=== PATIENT | male | born 1965 | race Two or more races ===

== ENCOUNTER 2019-02-07 20:21 | Emergency (ER) | payer OTHER, BC ==
[2019-02-07] MEDS: AZITHROMYCIN 250 MG TAB PO (23:45)
[2019-02-07] MEDS: CEFTRIAXONE 250 MG INJ IM (23:46)
[2019-02-08 00:47] LABS: HEPATITIS B SURFACE ANTIGEN POSITIVE (NEGATIVE)
[2019-02-08 00:56] LABS: ADD UMIC NO; UR ASCORBIC ACID NEGATIVE (NEGATIVE); UR BILIRUBIN (Dip) NEGATIVE (NEGATIVE); UR BLOOD (Dip) NEGATIVE (NEGATIVE); UR CLARITY CLEAR (CLEAR); UR COLOR YELLOW (YELLOW); UR GLUCOSE (Dip) NEGATIVE (NEGATIVE); UR KETONES (Dip) NEGATIVE (NEGATIVE); UR LEUKOCYTE ESTERASE (Dip) NEGATIVE Leu/ul (NEGATIVE); UR NITRITE (Dip) NEGATIVE (NEGATIVE); UR SPECIFIC GRAVITY (Dip) 1.031 (1.003-1.030); UR TOTAL PROTEIN (Dip) NEGATIVE (NEGATIVE); UR UROBILINOGEN (Dip) NEGATIVE (NEGATIVE)
[2019-02-08 00:59] LABS: HEPATITIS B CORE ANTIBODY REACTIVE (NEGATIVE); HEPATITIS C VIRAL ANTIBODY NEGATIVE (NEGATIVE); HIV 1&2 ANTIBODY NEGATIVE (NEGATIVE)
[2019-02-08 01:17] LABS: HEPATITIS B SURFACE ANTIBODY NEGATIVE (NEGATIVE)
[2019-02-08 22:32] LABS: RAPID PLASMA REAGIN NONREACTIVE (NR)
[2019-02-11 21:38] LABS: HEPATITIS B SURFACE ANTIGEN NON-REACTIVE (NON-REACTIVE)
== END 2019-02-08 01:31 | disposition home or self-care (01) ==
LOC: FTE 02-08 01:31
DX: B18.1 Chronic viral hepatitis B without delta-agent (principal); Z72.51 High risk heterosexual behavior
CPT/HCPCS: 36415; 81003; 86592; 86703; 86704; 86706; 86803; 87086; 87340; 96372; 99284-25